=== PATIENT | male | born 1995 | race Caucasian/White ===

== ENCOUNTER 2018-10-06 18:10 | Emergency (ER) | payer MEDICARE ==
[~2018-10-06] VITALS: Ht 180.3 cm; Wt 61.2 kg
[2018-10-06] MEDS ORDERED: NORCO 5-325 TA1 EACH PO (19:17)
[2018-10-06] MEDS ORDERED: CRUTCH1 EACH MISC (19:22)
== END 2018-10-06 19:49 | disposition home or self-care (01) ==
LOC: ED 18:10
DX: S92.252A Displaced fracture of navicular [scaphoid] of left foot, initial encounter for closed fracture (principal); F17.200 Nicotine dependence, unspecified, uncomplicated; W22.8XXA Striking against or struck by other objects, initial encounter; Y92.481 Parking lot as the place of occurrence of the external cause
CPT/HCPCS: 73610; 99283-25